=== PATIENT | female | born 1960 | race Caucasian/White ===

== ENCOUNTER → 2016-10-19 | Outpatient (CLI) | payer OTHER ==
--- NOTE | ~2016-10-19 | US37 ---
[facility] A Service of [facility] RADIOLOGY TEXT RESULTS PATIENT: MANFRED MUKHERJEE LOCATION: CNIV : 58 UNIT #: [id number] AGE: [address]: Nate Ybarra MD SEX: F ORDER DR: [id number] [facility] [address] [place], [place] [address] [id number] O MR#: [id number] Acc #: [id number] NAME: MANFRED MUKHERJEE : 1960 SEX: F STUDY DATE/TIME: 10/19/2016 14:00 UNIT: CNIV ROOM: STUDY DESCRIPTION: US Carotid W/Doppler Bilateral Attending Physician: Nate Ybarra M.D. Referring Physician: Nate Ybarra M.D. Ordering Physician: Nate Ybarra M.D. Primary Care Physician: Wilfredo Diaz Aprn MEDICAL IMAGING REPORT This report is preliminary unless electronic signature is present EXAM Bilateral carotid duplex, 10/19/2016 HISTORY Carotid artery stenosis. FINDINGS Duplex imaging of the carotid arteries was performed. The right common carotid artery is patent. Mild heterogeneous plaque is seen in the right internal carotid artery in the proximal portion. Velocity in the right common carotid is 52, internal is 96 and external is 72 cm per second. Right ICA/CCA ratio is 1.8. On the left side the common carotid artery is patent. Mild plaque is seen in the left internal carotid artery and external carotid arteries. Velocity in the left common carotid is 67, internal is 80 and external is 70 cm/sec. Left ICA/CCA ratio is 0.9. Antegrade flow is seen in the right and left vertebral arteries. IMPRESSION Mild plaque with less than 50% stenosis is seen in the right and left internal carotid arteries. Antegrade flow is seen in the right and left vertebral arteries. Dictated by... Nate Ybarra M.D. THIS IS AN ELECTRONICALLY VERIFIED REPORT Nate Ybarra M.D. at 10/22/2016 2:05 PM /[email or web address] [facility] A Service of [facility] RADIOLOGY TEXT RESULTS PATIENT: MANFRED MUKHERJEE LOCATION: CNIV : 58 UNIT #: [id number] AGE: [address]: Nate Ybarra MD SEX: F ORDER DR: TD: 10/19/2016 21:52 JOB #: [id number] MEDICAL IMAGING REPORT Page 1 of 1 COPY
== END | disposition home or self-care (01) ==
LOC: CNIV 13:24
DX: I65.29 Occlusion and stenosis of unspecified carotid artery (principal); I65.23 Occlusion and stenosis of bilateral carotid arteries
CPT/HCPCS: 93880